=== PATIENT | female | born 1990 | race African-American/Black ===

== ENCOUNTER 2023-05-23 14:25 | Observation (INO) | payer OTHER ==
[2023-05-23 14:39] VITALS: BMI 30.9
[2023-05-23] MEDS ORDERED: ONDANSETRON 4 MG/2 ML VIAL ONE (15:18)
[2023-05-23] MEDS ORDERED: FAMOTIDINE 20 MG/50 ML IVPB 20 MG/50 ML MG IVPB ONE (15:18)
[2023-05-23] MEDS: ONDANSETRON 4 MG/2 ML VIAL IVPUSH ONE (15:39)
[2023-05-23] MEDS: SODIUM CHLORIDE 0.9% 500 ML INFUS.BAG IV ONE ×2 (15:39→17:09)
[2023-05-23] MEDS: FAMOTIDINE 20 MG/50 ML IVPB 20 MG/50 ML MG IVPB ONE (15:47)
[2023-05-23 15:50] LABS: BASO % 0.4 % (0-2.0); EOS % 0.7 % (0-4.5); HEMATOCRIT 35.8 % (32.4-45.2); HEMOGLOBIN 11.9 GM/dL (10.7-15.3); LYMPH % 21.9 % (8-40); MCH 26.4 pg (25.7-33.7); MCHC 33.2 g/dl (32.0-36.0); MEAN CELL VOLUME 79.4 fl (80-96); MEAN PLT VOLUME 7.8 fl (7.5-11.1); MONO % 9.7 % (3.8-10.2); NEUT % 67.3 % (42.8-82.8); PLATELET COUNT 453 10^3/uL (134-434); RBC 4.51 M/mm3 (3.60-5.2); RDW 14.2 % (11.6-15.6); WHITE BLOOD COUNT 10.2 K/mm3 (4.0-10.0)
[2023-05-23 16:18] LABS: POTASSIUM 4.6 mmol/L (3.5-5.1)
[2023-05-23 16:21] LABS: BLOOD UREA NITROGEN 8.4 mg/dL (7-18); CALCIUM 9.3 mg/dL (8.5-10.1); MAGNESIUM 2.3 mg/dL (1.8-2.4)
[2023-05-23 16:22] LABS: ALBUMIN 3.4 g/dl (3.4-5.0)
[2023-05-23 16:24] LABS: CREATININE 0.6 mg/dL (0.55-1.3)
[2023-05-23 16:26] LABS: BILIRUBIN,TOTAL 0.3 mg/dL (0.2-1); TOT PROT 7.6 g/dl (6.4-8.2)
[2023-05-23] MEDS ORDERED: LACTATED RINGERS SOLUTION 1,000 ML/1,000 ML INFUS.BAG IV SCH (16:30)
[2023-05-23 17:16] LABS: URINE APPEARANCE CLEAR; URINE BILIRUBIN NEGATIVE (NEGATIVE); URINE COLOR YELLOW; URINE GLUCOSE (UA) NEGATIVE (NEGATIVE); URINE KETONE 1+ (NEGATIVE); URINE LEUK ESTERASE NEGATIVE (NEGATIVE); URINE NITRITE NEGATIVE (NEGATIVE); URINE PROTEIN TRACE (NEGATIVE)
[2023-05-23] MEDS ORDERED: ONDANSETRON 4 MG/2 ML VIAL IVPUSH PRN (18:03)
[2023-05-23] MEDS: LACTATED RINGERS SOLUTION 1,000 ML/1,000 ML INFUS.BAG IV SCH (19:41)
[2023-05-23] MEDS ORDERED: ACETAMINOPHEN INJECTION 100 ML IVPB ONE (19:52)
[2023-05-23] MEDS: ACETAMINOPHEN 1000 MG/100 ML BAG IVPB ONE (19:55)
[2023-05-23 23:32] VITALS: RESP 18
[2023-05-24] MEDS: SODIUM CHLORIDE 1,000 ML IV SCH (05:22)
[2023-05-24 09:19] LABS: BASO % 0.3 % (0-2.0); HEMATOCRIT 31.2 % (32.4-45.2); HEMOGLOBIN 10.5 GM/dL (10.7-15.3); LYMPH % 33.8 % (8-40); MCH 26.8 pg (25.7-33.7); MCHC 33.7 g/dl (32.0-36.0); MEAN CELL VOLUME 79.4 fl (80-96); MEAN PLT VOLUME 7.9 fl (7.5-11.1); MONO % 10.9 % (3.8-10.2); PLATELET COUNT 344 10^3/uL (134-434); RBC 3.93 M/mm3 (3.60-5.2); WHITE BLOOD COUNT 7.7 K/mm3 (4.0-10.0)
[2023-05-24 09:39] LABS: POTASSIUM 3.8 mmol/L (3.5-5.1)
[2023-05-24 09:44] LABS: ALBUMIN 2.8 g/dl (3.4-5.0)
[2023-05-24 09:45] LABS: BLOOD UREA NITROGEN 3.5 mg/dL (7-18)
[2023-05-24 09:46] LABS: CALCIUM 8.1 mg/dL (8.5-10.1); MAGNESIUM 2.1 mg/dL (1.8-2.4)
[2023-05-24 09:47] LABS: CREATININE 0.4 mg/dL (0.55-1.3); PHOSPHOROUS 3.5 mg/dL (2.5-4.9)
[2023-05-24 09:49] LABS: BILIRUBIN,TOTAL 0.3 mg/dL (0.2-1)
[2023-05-24] MEDS ORDERED: [UNRECOGNIZED DRUG - REMARK] PO SCH (10:00)
[2023-05-24] MEDS: ENOXAPARIN NA (PORCINE) 40 MG/0.4 ML DISP.SYRIN SQ SCH (10:28)
[2023-05-24] MEDS: PRENATAL VITAMINS W/ FOLIC ACID TABLET (FP) PO SCH (10:29)
[2023-05-25 09:40] VITALS: BP 112/76; PULSE 82; TEMP 98.4
[2023-05-25 09:49] LABS: BASO % 0.5 % (0-2.0); EOS % 1.2 % (0-4.5); HEMATOCRIT 36.1 % (32.4-45.2); HEMOGLOBIN 11.7 GM/dL (10.7-15.3); LYMPH % 31.5 % (8-40); MCHC 32.4 g/dl (32.0-36.0); MEAN CELL VOLUME 80.4 fl (80-96); MEAN PLT VOLUME 8.1 fl (7.5-11.1); MONO % 7.7 % (3.8-10.2); NEUT % 59.1 % (42.8-82.8); PLATELET COUNT 405 10^3/uL (134-434); RBC 4.49 M/mm3 (3.60-5.2); RDW 13.8 % (11.6-15.6); WHITE BLOOD COUNT 9.7 K/mm3 (4.0-10.0)
[2023-05-25 10:05] LABS: POTASSIUM 3.8 mmol/L (3.5-5.1)
[2023-05-25 10:24] LABS: ALBUMIN 3.2 g/dl (3.4-5.0); BLOOD UREA NITROGEN 4.7 mg/dL (7-18)
[2023-05-25 10:25] LABS: BILIRUBIN,TOTAL 0.3 mg/dL (0.2-1)
[2023-05-25 10:27] LABS: CREATININE 0.5 mg/dL (0.55-1.3)
[2023-05-25 10:28] LABS: TOT PROT 7.2 g/dl (6.4-8.2)
== END 2023-05-25 11:00 | disposition home or self-care (01) ==
LOC: JER 14:25 → JERBED 18:02 → J5S 22:52
PROVIDERS: ADMIT Internal Medicine; ATTEND Internal Medicine
PROC: 3E033NZ Introduction of Analgesics, Hypnotics, Sedatives into Peripheral Vein, Percutaneous Approach (ICD-10-PCS; principal; 2023-05-23)
PROC: 3E033GC Introduction of Other Therapeutic Substance into Peripheral Vein, Percutaneous Approach (ICD-10-PCS; 2023-05-23)
PROC: 3E023GC Introduction of Other Therapeutic Substance into Muscle, Percutaneous Approach (ICD-10-PCS; 2023-05-23)
PROC: 3E0337Z Introduction of Electrolytic and Water Balance Substance into Peripheral Vein, Percutaneous Approach (ICD-10-PCS; 2023-05-23)
DX: O21.9 Vomiting of pregnancy, unspecified (principal); Z3A.08 8 weeks gestation of pregnancy; E78.5 Hyperlipidemia, unspecified
CPT/HCPCS: 0241U-QW; 36415; 76817-TC; 80053; 81003; 82962; 83690; 83735; 84100; 84443; 84702; 85025; 86140; 87086; 93005; 93010; 96361; 96365; 96372; 96375; 99285-25; G0378; J0131